=== PATIENT | male | born 1945 | race Caucasian/White ===

== ENCOUNTER → 2016-10-01 | Outpatient (CLI) | payer MEDICARE, BC ==
[~2016-10-01] MED LIST: ASPIR-LOW81 MG PO; AZULFIDINE ENT500 MG PO; CENTRUM SILVER1 TA1 PO; COLACE 100100 MG/CAP PO; FERREX 150150 MG PO; FERROUS SU325 MG/TAB PO; FERROUS SULFAT325 MG PO; FOLIC ACID 40400 MCG PO; FOLIC ACID PO; LIDO2%GEL; LORTAB 5/500 501 TAB PO; MOBIC PO; MOBIC15 MG PO; MULTIVITAMIN PO; NEXIUM 40MG40 MG PO; NEXIUM PO; NORCO 325 MG-51 TAB PO; OSTEO-BI-FLEX 21 TAB PO; SULFAZINE500 MG PO; TOPROL PO; TOPROL XL 25MG25 MG PO; TOPROL XL25 MG PO; TYLENOL 325MG325 MG PO; VITAMIN B COMPL1 TA1 PO; VITAMIN C500 MG PO; glucosamine chondroi
== END ==
LOC: COL.RAD 11:21
DX: M47.892 Other spondylosis, cervical region (principal); M48.02 Spinal stenosis, cervical region

== ENCOUNTER 2017-04-08 07:05 | Day surgery (SDC) | payer MEDICARE, BC ==
[2008-06-27 08:01] VITALS: BP 140/81
[~2017-04-08] VITALS: Ht 190.5 cm; Wt 92.3 kg
[2017-04-08] MEDS ORDERED: NEXIUM 20MG20 MG PO (07:25)
[2017-04-08] MEDS ORDERED: TOPROL XL 50MG50 MG PO (07:26)
[2017-04-08] MEDS ORDERED: AZULFIDINE500 MG/TAB PO (07:26)
[2017-04-08] MEDS ORDERED: VITAMIN B COMPL1 SGL PO (07:27)
[2017-04-08] MEDS ORDERED: FERREX 150150 MG PO (07:28)
[2017-04-08] MEDS ORDERED: TOPROL XL 25MG25 MG PO (07:44)
[2017-04-08 08:37] VITALS: BP 148/98; PULSE 87; TEMP 98.3
[2017-04-08 08:55] VITALS: BP 131/90; PULSE 82; TEMP 98
[2017-04-08 09:10] VITALS: BP 105/76; PULSE 70
[2017-04-08 09:30] VITALS: BP 126/80; PULSE 85
== END 2017-04-08 09:40 | disposition home or self-care (01) ==
LOC: SDCO 07:05
DX: K64.0 First degree hemorrhoids (principal); I10 Essential (primary) hypertension; K21.9 Gastro-esophageal reflux disease without esophagitis; Z96.649 Presence of unspecified artificial hip joint; Z96.659 Presence of unspecified artificial knee joint; Z80.0 Family history of malignant neoplasm of digestive organs
CPT/HCPCS: OP; J2250; J3010; J7030

== ENCOUNTER 2023-09-09 11:15 | Outpatient (RCR) | payer MEDICARE, BC ==
[~2023-09-09 11:15] MED LIST changes: +APRESOLINE 25MG25 MG PO; +AZULFIDINE500 MG/TAB PO; +CLARITIN REDIT PO; +COMPLETE MULTI1 TAB PO; +NEXIUM 20MG20 MG PO; +PEPCID 20MG TAB20 MG PO; +TOPROL XL 50MG50 MG PO; +VITAMIN B COMPL1 SGL PO
== END 2023-09-11 | disposition home or self-care (01) ==
LOC: WSPT
DX: R26.81 Unsteadiness on feet (principal)